=== PATIENT | female | born 1985 | race African-American/Black ===

== ENCOUNTER 2017-11-24 00:33 | Emergency (ER) | payer MEDICAID ==
[~2017-11-24] VITALS: Ht 167.6 cm; Wt 95.3 kg
[2017-11-24 01:04] VITALS: BP 100/80
== END 2017-11-24 04:33 | disposition left against medical advice (07) ==
LOC: ER 00:42
DX: Z48.01 Encounter for change or removal of surgical wound dressing (principal); Z53.21 Procedure and treatment not carried out due to patient leaving prior to being seen by health care provider

== ENCOUNTER 2021-04-07 09:12 | Emergency (ER) | payer MEDICAID ==
[~2021-04-07] VITALS: Ht 167.6 cm; Wt 104.3 kg
[2021-04-07 10:39] VITALS: BP 133/93
== END 2021-04-07 12:55 | disposition home or self-care (01) ==
LOC: ER 09:12
DX: L73.2 Hidradenitis suppurativa (principal)